=== PATIENT | female | born 1985 | race Caucasian/White ===

== ENCOUNTER 2020-02-25 19:20 | Emergency (ER) | payer OTHER ==
[2020-02-25 19:25] VITALS: BMI 24.4
--- NOTE | 2020-02-25 19:35 | PDOC ---
History of Present Illness - General Chief Complaint: Vaginal Bleeding Stated Complaint: VAGINAL BLEEDING Time Seen by Provider: 02/25/20 19:32 History Source: Patient Exam Limitations: No Limitations - History of Present Illness Initial Comments: 02/25/20 19:59 34yF 11wk presenting w large amount of vaginal bleeding started 1hr ago. Has normal care at [address] [place] [address]. Not on AC, never had this much bleeding before. Denies abd pain, fever, n/v, lightheadness. Past History - Medical History Allergies/Adverse Reactions: Allergies Allergy/AdvReac Type Severity Reaction Status Date / Time No Known Allergies Allergy Verified 02/25/20 19:25 - Reproductive History Is Patient Now?: Yes - Psycho-Social/Smoking History Smoking History: Never smoked - Substance Abuse Hx (Audit-C & DAST Scrn) How often the patient has a drink containing alcohol: Never Score: In Men: 4 or > Positive; In Women: 3 or > Positive: 0 Screen Result (Pos requires Nsg. Audit-10AR): Negative In the last yr the pt used illegal drug/Rx for NonMed reason: No Score: Yes response is considered Positive: 0 Screen Result (Positive result requires Nsg. DAST-10): Negative Review of Systems - Review of Systems Constitutional: No: Chills, Fever HEENTM: No: Eye Pain, Nose Congestion Respiratory: No: Cough, Shortness of Breath Cardiac (ROS): No: Chest Pain, Palpitations ABD/GI: Yes: Abdominal Distended. No: Constipated, Diarrhea, Nausea, Vomiting : No: Burning, Dysuria Musculoskeletal: No: Back Pain, Joint Pain Integumentary: No: Bruising, Flushing Neurological: No: Headache, Seizure Psychiatric: No: Anxiety, Depression Endocrine: No: Intolerance to Cold, Intolerance to Heat Hematologic/Lymphatic: Yes: Blood Clots. No: Anemia *Physical Exam - Vital Signs Last Vital Signs Temp Pulse Resp BP Pulse Ox 98.6 F 84 19 130/82 100 02/25/20 19:20 02/25/20 19:20 02/25/20 19:20 02/25/20 19:20 02/25/20 19:20 - Physical Exam General Appearance: Yes: Nourished, Appropriately Dressed, Mild Distress HEENT: positive: EOMI, AN, Normal Voice, Hearing Grossly Normal. negative: Scleral Icterus (R), Scleral Icterus (L) Respiratory/Chest: positive: Lungs Clear, Normal Breath Sounds. negative: Chest Tender, Respiratory Distress Cardiovascular: positive: Regular Rhythm, Regular Rate, S1, S2. negative: Edema, Murmur Gastrointestinal/Abdominal: positive: Normal Bowel Sounds, Soft, Distended. n egative: Tender, Organomegaly Integumentary: positive: Normal Color, Warm Neurologic: positive: Fully Oriented, Alert, Normal Mood/Affect, Normal Resp onse, Responsive ED Treatment Course - LABORATORY CBC & Chemistry Diagram: 02/26/20 00:38 02/25/20 20:10 Medical Decision Making - Medical Decision Making 02/25/20 20:02 pelvic exam - large amount of blood pooled in vaginal vault w large blood clots, unable to visualize cervix d/t blood, large bulge palpated at cervix (fetus?), no cervical/ovarian tenderness pelvic US - IUP 11w5d w 152 HR, no subchorionic hemorrhage, 3.4cm simple L corpus luteal ovarian cyst --- 34yF 11wk presenting w large amount of vaginal bleeding started 1hr before arrival. Vitals stable, not pale, Hgb 12.6 to 11.7 repeat, bHCG 64,000 Threatened vs inevitable . US showed 11w5d w 152 HR. No UTI 2 peripheral IVs placed. Bleeding slowed to spotting on re-eval Consulted Dr Delgadillo OBB[facility]AR[facility] - get bHCG, US, CBC, will follow DC w OBGYN f/u, strict return precautions Discharge - Discharge Information Problems reviewed: Yes Clinical Impression/Diagnosis: Inevitable Condition: Stable Disposition: HOME - Follow up/Referral Referrals: Angle Schrader MD [Primary Care Provider] - Mohit Delgadillo MD [Staff Physician] - - Patient Discharge Instructions Patient Printed Discharge Instructions: DI for Threatened Additional Instructions: Your workup did not show anything concerning Please follow up with the referred OBGYN Dr Delgadillo within the next 1-2 days Come back to the ED if you lose lots of blood or worsening abdominal pain - Post Discharge Activity
[2020-02-25 20:29] LABS: INR 0.96 (0.83-1.09); PROTHROMBIN TIME (PATIENT) 11.3 SEC (9.7-13.0)
[2020-02-25 20:30] LABS: BASO % 0.5 % (0-2.0); EOS % 1.1 % (0-4.5); HEMATOCRIT 36.9 % (32.4-45.2); HEMOGLOBIN 12.6 GM/dL (10.7-15.3); LYMPH % 19.3 % (8-40); MCH 30.8 pg (25.7-33.7); MCHC 34.1 g/dl (32.0-36.0); MEAN CELL VOLUME 90.2 fl (80-96); MEAN PLT VOLUME 10.2 fl (7.5-11.1); MONO % 7.4 % (3.8-10.2); NEUT % 71.7 % (42.8-82.8); PLATELET COUNT 179 K/MM3 (134-434); RBC 4.09 M/mm3 (3.60-5.2); RDW 13.6 % (11.6-15.6); WHITE BLOOD COUNT 7.2 K/mm3 (4.0-10.0)
[2020-02-25 20:32] LABS: ACTIVATED PTT 32.2 SECONDS (25.2-36.5)
[2020-02-25 20:35] LABS: EPI CELLS 6 /uL (0-25.1); HYALINE CASTS 0 /uL (0-3.1); URINE APPEARANCE CLEAR; URINE BACTERIA 21 /uL (0-1359); URINE BILIRUBIN NEGATIVE (NEGATIVE); URINE COLOR YELLOW; URINE GLUCOSE (UA) NEGATIVE (NEGATIVE); URINE KETONE NEGATIVE (NEGATIVE); URINE LEUK ESTERASE NEGATIVE (NEGATIVE); URINE NITRITE NEGATIVE (NEGATIVE); URINE PROTEIN NEGATIVE (NEGATIVE); URINE RBC 51 /uL (0-23.9); URINE UROBILINOGEN 0.2 mg/dL (0.2-1.0); URINE WBC 3 /uL (0-25.8)
[2020-02-25 20:52] LABS: ALBUMIN 3.7 g/dl (3.4-5.0); BILIRUBIN,TOTAL 0.3 mg/dL (0.2-1); BLOOD UREA NITROGEN 7.9 mg/dL (7-18); CREATININE 0.7 mg/dL (0.55-1.3); POTASSIUM 3.9 mmol/L (3.5-5.1); TOT PROT 6.8 g/dl (6.4-8.2)
--- NOTE | 2020-02-26 00:05 | PDOC ---
Documentation entered by Genevieve Quintero SCRIBE, acting as scribe for Annmarie Romero MD. Annmarie Romero MD: This documentation has been prepared by the roslyneLeon Sydney, SCRIBE, under my direction and personally reviewed by me in its entirety. I confirm that the documentation accurately reflects all work, treatment, procedures, and medical decision making performed by me. Attending Attestation - Resident Resident Name: Rod,Adam - ED Attending Attestation I have performed the following: I have examined & evaluated the patient, The case was reviewed & discussed with the resident, I agree w/resident's findings & plan, Exceptions are as noted - HPI HPI: 02/25/20 20:39 Patient is a 34 female (, 11 weeks) with no significant past medical history who presents to the ED with one hour of vaginal bleeding. As per patient, she has never experienced this much bleeding before and reports she is not on any anticoagulation medications. Pt saw an OB at [facility] and had a normal US a few wks ago. Denies cramping. Denies headache, swelling. Denies headache, abdominal pain,CP, SOB, fever, chills, nausea, vomiting, or diarrhea. Allergies: NKDA PCP: Dr. Schrader - Physicial Exam PE: 02/25/20 23:30 Agree with resident exam - Medical Decision Making 02/26/20 00:00 34yo F currently 11wks presents to the ED with vaginal bleeding with clots Pt is hemodynamically stable Pelvic by Dr. Malik with pooling blood of speculum, no clots, os closed TVUS IOC read with 11wk with FHR 152, no SC hemorrhage BHCG as expected for 11wk preg Likely threatened Ab Given report of heavy bleeding, will rpt 4hr cbc If stable will DC, if significant drop pt may need blood transfusion/observation Case signed out to Dr. Wilson for f/u of 4hr CBC, reassessment, dispo Discharge - Discharge Information Clinical Impression/Diagnosis: Inevitable Condition: Stable Disposition: HOME - Follow up/Referral Referrals: Mohit Delgadillo MD [Staff Physician] - Angle Schrader MD [Primary Care Provider] - - Patient Discharge Instructions Patient Printed Discharge Instructions: DI for Threatened Additional Instructions: Your workup did not show anything concerning Please follow up with the referred OBGYN Dr Delgadillo within the next few days Come back to the ED if you lose lots of blood or worsening abdominal pain - Post Discharge Activity
[2020-02-26 00:58] LABS: HEMATOCRIT 34.2 % (32.4-45.2); HEMOGLOBIN 11.7 GM/dL (10.7-15.3); MCHC 34.2 g/dl (32.0-36.0); MEAN CELL VOLUME 90.6 fl (80-96); MEAN PLT VOLUME 10.2 fl (7.5-11.1); PLATELET COUNT 168 K/MM3 (134-434); RBC 3.77 M/mm3 (3.60-5.2); RDW 13.7 % (11.6-15.6); WHITE BLOOD COUNT 7.2 K/mm3 (4.0-10.0)
[2020-02-26 01:43] VITALS: BP 97/62; PULSE 78; TEMP 98
== END 2020-02-26 01:50 | disposition home or self-care (01) ==
LOC: JER 19:20
DX: O20.0 Threatened abortion (principal)
CPT/HCPCS: 36415; 76801-TC; 80053; 81003; 84702; 85025; 85027; 85610; 85730; 86850; 86900; 86901; 87086; 99284-25

== ENCOUNTER 2020-08-20 11:51 | Inpatient (IN) | payer OTHER ==
[2020-08-20] MEDS ORDERED: ELECTROLYTE-148 SOLN 500 ML IV ONE (12:01)
[2020-08-20] MEDS ORDERED: CITRIC ACID/SODIUM CITRATE 30 ML UNIT-DOSE CUP PO ONE ×2 (12:01→12:02)
[2020-08-20] MEDS: ELECTROLYTE-148 SOLN 1,000 ML IV SCH (12:25)
[2020-08-20 12:36] VITALS: BMI 30.8
[2020-08-20] MEDS ORDERED: ONDANSETRON 4 MG/2 ML VIAL IVPUSH PRN (12:55)
[2020-08-20] MEDS ORDERED: OXYTOCIN 20 UNITS in 0.9% NS 40 UNIT/2,000 ML INFUS.BAG IV ONE (12:56)
[2020-08-20] MEDS ORDERED: morphine SULFATE/PF 0.5 MG/ML (2cc Syringe - QUVA) ONE (12:58)
[2020-08-20] MEDS ORDERED: ePHEDrine SULFATE 50 MG/1 ML AMPULE ONE (12:58)
[2020-08-20] MEDS ORDERED: IBUPROFEN 800 MG/8 ML IJ IVPB PRN (14:07)
[2020-08-20] MEDS ORDERED: oxyCODONE HCL 5 MG TABLET PO PRN (14:07)
[2020-08-21] MEDS: ACETAMINOPHEN 325 MG TABLET (FP) PO PRN ×3 (08:44→20:10)
[2020-08-21] MEDS: SIMETHICONE 80 MG TAB.CHEW (FP) PO PRN ×3 (08:46→20:11)
[2020-08-21] MEDS: IBUPROFEN 600 MG TABLET (FP) PO PRN ×3 (08:46→20:11)
[2020-08-21 08:55] LABS: BASO % 0.2 % (0-2.0); EOS % 0.6 % (0-4.5); HEMATOCRIT 35.5 % (32.4-45.2); HEMOGLOBIN 12.2 GM/dL (10.7-15.3); LYMPH % 10.6 % (8-40); MCH 31.7 pg (25.7-33.7); MCHC 34.4 g/dl (32.0-36.0); MEAN CELL VOLUME 92.2 fl (80-96); MEAN PLT VOLUME 9.9 fl (7.5-11.1); MONO % 7.6 % (3.8-10.2); PLATELET COUNT 184 K/MM3 (134-434); RBC 3.85 M/mm3 (3.60-5.2); RDW 13.6 % (11.6-15.6); WHITE BLOOD COUNT 9.1 K/mm3 (4.0-10.0)
[2020-08-21] MEDS: ELECTROLYTE-148 SOLN 1,000 ML IV SCH (12:52)
[2020-08-21] MEDS ORDERED: BISACODYL 10 MG SUPP.RECT RC PRN (14:07)
[2020-08-21] MEDS: OXYTOCIN 20 UNITS in 0.9% NS 20 UNIT/1,000 ML INFUS.BAG IV SCH ×2 (15:16→21:38)
[2020-08-22] MEDS: ACETAMINOPHEN 325 MG TABLET (FP) PO PRN ×3 (08:08→20:28)
[2020-08-22] MEDS: IBUPROFEN 600 MG TABLET (FP) PO PRN ×3 (08:10→20:30)
[2020-08-22] MEDS: SIMETHICONE 80 MG TAB.CHEW (FP) PO PRN ×3 (08:20→20:31)
[2020-08-23] MEDS: ACETAMINOPHEN 325 MG TABLET (FP) PO PRN ×3 (00:09→10:32)
[2020-08-23] MEDS: SIMETHICONE 80 MG TAB.CHEW (FP) PO PRN ×2 (00:11→06:13)
[2020-08-23] MEDS: IBUPROFEN 600 MG TABLET (FP) PO PRN (06:13)
[2020-08-23 10:21] LABS: BASO % 0.6 % (0-2.0); EOS % 1.8 % (0-4.5); HEMATOCRIT 31.4 % (32.4-45.2); HEMOGLOBIN 10.6 GM/dL (10.7-15.3); LYMPH % 17.9 % (8-40); MCH 31.5 pg (25.7-33.7); MCHC 33.9 g/dl (32.0-36.0); MEAN CELL VOLUME 92.8 fl (80-96); MEAN PLT VOLUME 10.2 fl (7.5-11.1); MONO % 6.6 % (3.8-10.2); NEUT % 73.1 % (42.8-82.8); PLATELET COUNT 192 K/MM3 (134-434); RBC 3.38 M/mm3 (3.60-5.2); RDW 13.6 % (11.6-15.6); WHITE BLOOD COUNT 6.9 K/mm3 (4.0-10.0)
[2020-08-23 10:49] VITALS: BP 111/76; PULSE 76; TEMP 97.6
== END 2020-08-23 12:55 | disposition home or self-care (01) | DRG 540 ==
LOC: JLDR 11:51 → J3W 16:00
PROVIDERS: ADMIT Student in an Organized Health Care Education/Training Program; ATTEND Student in an Organized Health Care Education/Training Program
PROC: 10D00Z1 Extraction of Products of Conception, Low, Open Approach (ICD-10-PCS; principal; 2020-08-20)
DX: O69.4XX0 Labor and delivery complicated by vasa previa, not applicable or unspecified (principal); O60.14X0 Preterm labor third trimester with preterm delivery third trimester, not applicable or unspecified; O43.893 Other placental disorders, third trimester; O43.193 Other malformation of placenta, third trimester; Z3A.36 36 weeks gestation of pregnancy; Z37.0 Single live birth
CPT/HCPCS: 36415; 85025

== ENCOUNTER 2022-01-15 04:07 | Day surgery (SDC) | payer OTHER ==
[2022-01-13 11:40] VITALS: BMI 26.4
[2022-01-15] MEDS ORDERED: LIDOCAINE HCL 1%, 10 MG/ML (20ML VIAL) INF ONE ×2 (13:09)
[2022-01-15] MEDS ORDERED: BUPIVACAINE HCL/PF 0.25% (2.5MG/ML) 10 ML VIAL IJ ONE ×2 (13:09)
[2022-01-15] MEDS ORDERED: PROPOFOL 20 ML ONE ×2 (14:12)
[2022-01-15] MEDS ORDERED: MIDAZOLAM HCL 2 MG/2 ML SINGLE DOSE VIAL ONE (14:13)
[2022-01-15] MEDS ORDERED: BUPIVACAINE HCL/PF 0.25% (2.5MG/ML) 10 ML VIAL ONE (14:52)
[2022-01-15] MEDS ORDERED: oxyCODONE HCL 5 MG TABLET PO PRN (17:20)
[2022-01-15] MEDS ORDERED: ACETAMINOPHEN 325 MG TABLET (FP) PO PRN (17:20)
[2022-01-15] MEDS ORDERED: ONDANSETRON 4 MG/2 ML VIAL IVPUSH PRN (17:20)
[2022-01-15] MEDS ORDERED: LACTATED RINGERS SOLUTION 1,000 ML IV SCH (17:30)
[2022-01-15 18:11] VITALS: BP 124/70; PULSE 68; TEMP 97.9
== END 2022-01-15 18:10 | disposition home or self-care (01) ==
LOC: JASU-SURG 04:07
PROVIDERS: ATTEND Surgery Surgical Oncology
PROC: 0HBT0ZZ Excision of Right Breast, Open Approach (ICD-10-PCS; principal; 2022-01-15 13:00)
DX: N60.81 Other benign mammary dysplasias of right breast (principal)
CPT/HCPCS: 81025; 88304-TC; 94760

== ENCOUNTER 2022-10-22 08:15 | Inpatient (IN) | payer OTHER ==
[2022-10-22] MEDS ORDERED: IBUPROFEN 600 MG TABLET (FP) PO PRN (09:14)
[2022-10-22] MEDS ORDERED: ACETAMINOPHEN 325 MG TABLET (FP) PO PRN (09:14)
[2022-10-22] MEDS ORDERED: CITRIC ACID/SODIUM CITRATE 30 ML UNIT-DOSE CUP PO ONE (09:14)
[2022-10-22] MEDS ORDERED: ELECTROLYTE-148 SOLN 500 ML IV ONE (09:14)
[2022-10-22] MEDS ORDERED: ONDANSETRON 4 MG/2 ML VIAL IVPUSH PRN (09:14)
[2022-10-22 09:19] VITALS: BMI 38.9
[2022-10-22] MEDS ORDERED: IBUPROFEN 800 MG/8 ML IJ IVPB PRN (09:31)
[2022-10-22] MEDS ORDERED: METHYLERGONOVINE MALEATE 0.2 MG/1 ML AMP IM PRN (09:31)
[2022-10-22] MEDS ORDERED: OXYTOCIN 20 UNITS in 0.9% NS 20 UNIT/1,000 ML INFUS.BAG IV SCH (09:45)
[2022-10-22] MEDS ORDERED: ELECTROLYTE-148 SOLN 1,000 ML IV SCH (09:45)
[2022-10-22] MEDS ORDERED: PHENYLEPHRINE HCL 10 MG/1 ML SINGLE DOSE VIAL ONE (09:55)
[2022-10-22] MEDS ORDERED: morphine SULFATE/PF 1 MG/2 ML (2cc Syringe - QUVA) ONE (09:55)
[2022-10-22 11:08] LABS: CORD HCO3 27.2 mmHg (20-29); CORD PCO2 69.8 mmHg (30-78); CORD pH 7.209 (7.14-7.44)
[2022-10-22 11:10] LABS: CORD HCO3 24.3 mmHg (20-29); CORD PCO2 52.2 mmHg (30-78); CORD pH 7.286 (7.14-7.44)
[2022-10-22] MEDS ORDERED: oxyCODONE HCL 5 MG TABLET PO PRN (21:31)
[2022-10-23] MEDS: IBUPROFEN 600 MG TABLET (FP) PO PRN ×3 (01:20→21:47)
[2022-10-23] MEDS: SIMETHICONE 80 MG TAB.CHEW (FP) PO PRN ×4 (01:21→21:48)
[2022-10-23] MEDS: ACETAMINOPHEN 325 MG TABLET (FP) PO PRN (05:46)
[2022-10-23 07:22] LABS: BASO % 0.5 % (0-2.0); EOS % 1.7 % (0-4.5); HEMATOCRIT 31.6 % (32.4-45.2); HEMOGLOBIN 11.3 GM/dL (10.7-15.3); LYMPH % 14.6 % (8-40); MCH 32.1 pg (25.7-33.7); MCHC 35.8 g/dl (32.0-36.0); MEAN CELL VOLUME 89.8 fl (80-96); MEAN PLT VOLUME 9.7 fl (7.5-11.1); MONO % 7.5 % (3.8-10.2); NEUT % 75.7 % (42.8-82.8); PLATELET COUNT 178 10^3/uL (134-434); RBC 3.52 M/mm3 (3.60-5.2); RDW 13.9 % (11.6-15.6); WHITE BLOOD COUNT 6.4 K/mm3 (4.0-10.0)
[2022-10-23] MEDS ORDERED: BISACODYL 10 MG SUPP.RECT RC PRN (09:31)
[2022-10-24] MEDS: IBUPROFEN 600 MG TABLET (FP) PO PRN ×2 (06:02→16:42)
[2022-10-24] MEDS: ACETAMINOPHEN 325 MG TABLET (FP) PO PRN (10:30)
[2022-10-24 10:36] VITALS: BP 112/64; PULSE 93; RESP 20; TEMP 98.7
[2022-10-24] MEDS: SIMETHICONE 80 MG TAB.CHEW (FP) PO PRN (16:42)
== END 2022-10-24 18:48 | disposition home or self-care (01) | DRG 540 ==
LOC: JLDR 08:15 → J3W 12:10
PROVIDERS: ADMIT Student in an Organized Health Care Education/Training Program; ATTEND Student in an Organized Health Care Education/Training Program
PROC: 10D00Z1 Extraction of Products of Conception, Low, Open Approach (ICD-10-PCS; principal; 2022-10-22)
DX: O34.211 Maternal care for low transverse scar from previous cesarean delivery (principal); Z3A.37 37 weeks gestation of pregnancy; Z37.0 Single live birth
CPT/HCPCS: 36415; 36600; 80053; 81003; 82803; 85025; 85610; 86780; 86850; 86900; 86901; 88307-TC; 94010; C9803-CS; U0003; U0005